=== PATIENT | male | born 1945 | race Caucasian/White ===

== ENCOUNTER 2019-02-21 08:37 | Observation (INO) | payer MEDICARE, OTHER ==
[2019-02-21] MEDS ORDERED: Ondansetron 4 MG/2 ML SDV ONE (08:49)
[2019-02-21] MEDS ORDERED: Sodium Chloride 0.9% 2.5 ML Syringe FLUSH PRN (08:50)
[2019-02-21] MEDS ORDERED: Sodium Chloride 0.9% 10 ML Syringe FLUSH PRN (08:50)
[2019-02-21] MEDS ORDERED: Aspirin 81 MG Tab.Chew PO ONE (08:50)
--- NOTE | 2019-02-21 08:50 | EDM.PDOC ---
ED HPI GENERAL MEDICAL PROBLEM - General Chief Complaint: General Stated Complaint: DIZZY, NOT FEELING WELL Time Seen by Provider: 02/21/19 08:45 - History of Present Illness INITIAL COMMENTS - FREE TEXT/NARRATIVE: HISTORY AND PHYSICAL: History of present illness: Patient is a 73-year-old white male presents with concern of dizziness with associated nausea and vomiting he noticed this upon awakening this morning he does have history of coronary artery disease including bypass surgery 10 years prior and was evaluated as recently 1 year ago without significant findings. Patient states this is worse when he lays flat better when he sitting up he denies any numbness weakness visual disturbance chest pain palpitations diaphoresis or other concern. He denies prior episodes in the past as profound as this and denies any history of vertigo there is no reported CVA Review of systems: As per history of present illness and below otherwise all systems reviewed and negative. Past medical history: As per history of present illness and as reviewed below otherwise noncontributory. Surgical history: As per history of present illness and as reviewed below otherwise noncontributory. Social history: No reported history of drug or alcohol abuse. Family history: As per history of present illness and as reviewed below otherwise noncontributory. Physical exam: HEENT: Atraumatic, normocephalic, pupils reactive, negative for conjunctival pallor or scleral icterus, mucous membranes moist, throat clear, neck supple, nontender, trachea midline. Lungs: Clear to auscultation, breath sounds equal bilaterally, chest nontender. Heart: S1S2, regular, negative for clicks, rubs, or JVD. Abdomen: Soft, nondistended, nontender. Negative for masses or hepatosplenomegaly. Negative for costovertebral tenderness. Pelvis: Stable nontender. Genitourinary: Deferred. Rectal: Deferred. Extremities: Atraumatic, negative for cords or calf pain. Neurovascular unremarkable. Neuro: Awake, alert, oriented. Cranial nerves II through XII unremarkable. Cerebellum unremarkable. Motor and sensory unremarkable throughout. Exam nonfocal. Diagnostics: CBC CMP PT/INR troponin chest x-ray EKG CT brain Therapeutics: IV O2 monitor meclizine 25 mg by mouth Zofran 4 mg IV Impression: #1 dizziness with nausea and vomiting #2 history coronary artery disease with 10 year status post coronary artery bypass graft Definitive disposition and diagnosis as appropriate pending reevaluation and review of above. - Related Data Allergies Allergy/AdvReac Type Severity Reaction Status Date / Time No Known Allergies Allergy Verified 02/21/19 08:54 Home Meds: Home Meds Aspirin 81 mg PO DAILY 02/21/19 [History] Metoprolol Tartrate [Lopressor] 50 mg PO BID 02/21/19 [History] Ramipril [Altace] 10 mg PO DAILY 02/21/19 [History] amLODIPine [Norvasc] 5 mg PO DAILY 02/21/19 [History] atorvaSTATin Calcium [Atorvastatin Calcium] 80 mg PO BEDTIME 02/21/19 [History] Past Medical History HEENT History: Reports: Impaired Vision Other HEENT History: wears glasses Cardiovascular History: Reports: Bypass, High Cholesterol, Hypertension Other Cardiovascular History: CAB x 4 vessels Respiratory History: Reports: None Gastrointestinal History: Reports: None Genitourinary History: Reports: Prostate Disorder Other Genitourinary History: hx of cancer of the prostate Musculoskeletal History: Reports: None Neurological History: Reports: None Psychiatric History: Reports: None Endocrine/Metabolic History: Reports: None Hematologic History: Reports: Blood Transfusion(s) Immunologic History: Reports: None Oncologic (Cancer) History: Reports: Prostate Dermatologic History: Reports: None - Past Surgical History Cardiovascular Surgical History: Reports: Coronary Artery Bypass, Pacer GI Surgical History: Reports: Hernia, Inguinal Oncologic Surgical History: Reports: Other (See Below) ED ROS GENERAL - Review of Systems Review Of Systems: Comprehensive ROS is negative, except as noted in HPI. ED EXAM, GENERAL - Physical Exam Exam: See Below (See dictation) Course - Vital Signs Last Recorded V/S: Last Vital Signs Temp 36.3 C 02/21/19 08:46 Pulse 91 02/21/19 08:46 Resp 18 02/21/19 08:46 BP 164/105 H 02/21/19 08:46 Pulse Ox 91 L 02/21/19 08:46 - Orders/Labs/Meds Orders: Active Orders 24 hr Category Date Time Status Cardiac Monitoring [RC] . DIRECTED Care 02/21/19 08:50 Active Cardiac Monitoring [RC] . DIRECTED Care 02/21/19 08:52 Active EKG Documentation Completion [RC] STAT Care 02/21/19 08:50 Active Abdomen Pelvis w Cont [CT] Stat Exams 02/21/19 10:20 Ordered UA RFX ANGELINA AND CULT IF INDIC [URIN] Stat Lab 02/21/19 08:52 Ordered Sodium Chloride 0.9% [Saline Flush] Med 02/21/19 08:50 Active 10 ml FLUSH ASDIRECTED PRN Sodium Chloride 0.9% [Saline Flush] Med 02/21/19 08:50 Active 2.5 ml FLUSH ASDIRECTED PRN Saline Lock Insert [OM.PC] Stat Oth 02/21/19 08:50 Ordered Medication Orders Sodium Chloride (Saline Flush) 10 ml FLUSH ASDIRECTED PRN PRN Reason: Keep Vein Open Last Admin: 02/21/19 08:59 Dose: 10 ml Sodium Chloride (Saline Flush) 2.5 ml FLUSH ASDIRECTED PRN PRN Reason: Keep Vein Open Last Admin: 02/21/19 08:59 Dose: 2.5 ml Labs: Laboratory Tests 02/21/19 02/21/19 02/21/19 Range/Units 09:02 09:02 09:02 WBC 6.39 (4.0-11.0) K/uL RBC 5.21 (4.50-5.90) M/uL Hgb 15.9 (13.0-17.0) g/dL Hct 47.1 (38.0-50.0) % MCV 90.4 (80.0-98.0) fL MCH 30.5 (27.0-32.0) pg MCHC 33.8 (31.0-37.0) g/dL RDW Std Deviation 43.9 (28.0-62.0) fl RDW Coeff of Alejandro 13 (11.0-15.0) % Plt Count 182 (150-400) K/uL MPV 9.70 (7.40-12.00) fL Neut % (Auto) 49.0 (48.0-80.0) % Lymph % (Auto) 38.3 (16.0-40.0) % [place] % (Auto) 6.9 (0.0-15.0) % Eos % (Auto) 5.3 (0.0-7.0) % Baso % (Auto) 0.5 (0.0-1.5) % Neut # (Auto) 3.1 (1.4-5.7) K/uL Lymph # (Auto) 2.5 H (0.6-2.4) K/uL Oxford # (Auto) 0.4 (0.0-0.8) K/uL Eos # (Auto) 0.3 (0.0-0.7) K/uL Baso # (Auto) 0.0 (0.0-0.1) K/uL Nucleated RBC % 0.0 /100WBC Nucleated RBCs # 0 K/uL INR 1.04 Sodium 141 (136-148) mmol/L Potassium 3.4 L (3.5-5.1) mmol/L Chloride 106 (98-107) mmol/L Carbon Dioxide 27.6 (21.0-32.0) mmol/L BUN 18 (7.0-18.0) mg/dL Creatinine 1.1 (0.8-1.3) mg/dL Est Cr Clr Drug Dosing 43.56 mL/min Estimated GFR (MDRD) > 60.0 ml/min Glucose 129 H (74-106) mg/dL Calcium 8.8 (8.5-10.1) mg/dL Total Bilirubin 0.5 (0.2-1.0) mg/dL AST 25 (15-37) IU/L ALT 52 (14-63) IU/L Alkaline Phosphatase 73 (46-116) U/L Troponin I < 0.050 (0.000-0.056) ng/mL B-Natriuretic Peptide (<100) PG/ML Total Protein 7.3 (6.4-8.2) g/dL Albumin 4.0 (3.4-5.0) g/dL Globulin 3.3 (2.6-4.0) g/dL Albumin/Globulin Ratio 1.2 (0.9-1.6) Amylase 138 H (25-115) U/L Lipase 453 H (73-393) U/L 02/21/19 Range/Units 09:02 WBC (4.0-11.0) K/uL RBC (4.50-5.90) M/uL Hgb (13.0-17.0) g/dL Hct (38.0-50.0) % MCV (80.0-98.0) fL MCH (27.0-32.0) pg MCHC (31.0-37.0) g/dL RDW Std Deviation (28.0-62.0) fl RDW Coeff of Alejandro (11.0-15.0) % Plt Count (150-400) K/uL MPV (7.40-12.00) fL Neut % (Auto) (48.0-80.0) % Lymph % (Auto) (16.0-40.0) % Oxford % (Auto) (0.0-15.0) % Eos % (Auto) (0.0-7.0) % Baso % (Auto) (0.0-1.5) % Neut # (Auto) (1.4-5.7) K/uL Lymph # (Auto) (0.6-2.4) K/uL [place] # (Auto) (0.0-0.8) K/uL Eos # (Auto) (0.0-0.7) K/uL Baso # (Auto) (0.0-0.1) K/uL Nucleated RBC % /100WBC Nucleated RBCs # K/uL INR Sodium (136-148) mmol/L Potassium (3.5-5.1) mmol/L Chloride (98-107) mmol/L Carbon Dioxide (21.0-32.0) mmol/L BUN (7.0-18.0) mg/dL Creatinine (0.8-1.3) mg/dL Est Cr Clr Drug Dosing mL/min Estimated GFR (MDRD) ml/min Glucose (74-106) mg/dL Calcium (8.5-10.1) mg/dL Total Bilirubin (0.2-1.0) mg/dL AST (15-37) IU/L ALT (14-63) IU/L Alkaline Phosphatase (46-116) U/L Troponin I (0.000-0.056) ng/mL B-Natriuretic Peptide 31 (<100) PG/ML Total Protein (6.4-8.2) g/dL Albumin (3.4-5.0) g/dL Globulin (2.6-4.0) g/dL Albumin/Globulin Ratio (0.9-1.6) Amylase (25-115) U/L Lipase (73-393) U/L Meds: Medications Generic Name Dose Route Start Last Admin Trade Name Freq PRN Reason Stop Dose Admin Sodium Chloride 10 ml 02/21/19 08:50 02/21/19 08:59 Saline Flush FLUSH 10 ml ASDIRECTED PRN Administration Keep Vein Open Sodium Chloride 2.5 ml 02/21/19 08:50 02/21/19 08:59 Saline Flush FLUSH 2.5 ml ASDIRECTED PRN Administration Keep Vein Open Discontinued Medications Generic Name Dose Route Start Last Admin Trade Name Freq PRN Reason Stop Dose Admin Aspirin 324 mg 02/21/19 08:50 02/21/19 08:59 Aspirin PO 02/21/19 08:51 324 mg ONETIME ONE Administration Meclizine HCl 25 mg 02/21/19 08:51 02/21/19 08:59 Antivert PO 02/21/19 08:52 25 mg ONETIME ONE Administration Ondansetron HCl 4 mg 02/21/19 08:51 02/21/19 08:59 Zofran IVPUSH 02/21/19 08:52 4 mg ONETIME ONE Administration Ondansetron HCl Confirm 02/21/19 08:49 02/21/19 08:59 Zofran Administered 02/21/19 08:50 Not Given Dose 4 mg .ROUTE .STK-MED ONE Departure - Departure Time of Disposition: 10:21 Disposition: Refer to Observation Condition: Good Clinical Impression: Dizziness, History of coronary artery disease, Elevated amylase and lipase, Vomiting - Discharge Information Referrals: Noam Shelby MD [Primary Care Provider] - Forms: ED Department Discharge - My Orders Last 24 Hours: My Active Orders 02/21/19 08:50 Cardiac Monitoring [RC] . DIRECTED EKG Documentation Completion [RC] STAT Sodium Chloride 0.9% [Saline Flush] 10 ml FLUSH ASDIRECTED PRN Sodium Chloride 0.9% [Saline Flush] 2.5 ml FLUSH ASDIRECTED PRN Saline Lock Insert [OM.PC] Stat 02/21/19 08:52 Cardiac Monitoring [RC] . DIRECTED UA RFX ANGELINA AND CULT IF INDIC [URIN] Stat 02/21/19 10:20 Abdomen Pelvis w Cont [CT] Stat - Assessment/Plan Last 24 Hours: My Active Orders 02/21/19 08:50 Cardiac Monitoring [RC] . DIRECTED EKG Documentation Completion [RC] STAT Sodium Chloride 0.9% [Saline Flush] 10 ml FLUSH ASDIRECTED PRN Sodium Chloride 0.9% [Saline Flush] 2.5 ml FLUSH ASDIRECTED PRN Saline Lock Insert [OM.PC] Stat 02/21/19 08:52 Cardiac Monitoring [RC] . DIRECTED UA RFX ANGELINA AND CULT IF INDIC [URIN] Stat 02/21/19 10:20 Abdomen Pelvis w Cont [CT] Stat
[2019-02-21] MEDS ORDERED: Ondansetron 4 MG/2 ML SDV IVPUSH ONE (08:51)
[2019-02-21] MEDS ORDERED: Meclizine 25 MG Tab PO ONE (08:51)
--- NOTE | 2019-02-21 09:30 | CR ---
Indication: Dizziness. Nausea. Vomiting. Technique: Single AP portable view of the chest was obtained. Comparison: December 29, 2015. Findings: Heart is normal in size. Median sternotomy wires are identified. Left-sided pacemaker is identified. No infiltrate, pleural effusion, or pneumothorax is identified. Impression: Stable chest x-ray Dictated by Lisset Quinones MD @ Feb 21 2019 9:28AM Signed by Dr. Lisset Quinones @ Feb 21 2019 9:29AM
[2019-02-21 09:36] LABS: BLOOD UREA NITROGEN,BUN 18 mg/dL (7.0-18.0); CARBON DIOXIDE,CO2 27.6 mmol/L (21.0-32.0); CHLORIDE,CL 106 mmol/L (98-107); GLUCOSE RANDOM 129 mg/dL (74-106); LIPASE 453 U/L (73-393); POTASSIUM,K 3.4 mmol/L (3.5-5.1); SODIUM,NA 141 mmol/L (136-148)
--- NOTE | 2019-02-21 09:43 | CT ---
INDICATION: Dizziness. Nausea. Vomiting. TECHNIQUE: Noncontrast CT images were obtained through the brain. COMPARISON: None. FINDINGS: The ventricles and sulci are within normal limits for patient age. No mass effect or midline shift. The padilla-white differentiation is maintained. No acute intracranial hemorrhage or pathologic extra-axial fluid collection. Patchy hypoattenuation in the supratentorial white matter, nonspecific though suggestive of aeal-xj-jwkyfqhy chronic microvascular ischemic changes. Intracranial atherosclerotic calcifications in the internal carotid and vertebral arteries. The globes are symmetric in size. Subcutaneous stranding in the posterior parietal scalp near midline. The calvarium is intact. Mild mucosal thickening in the maxillary and ethmoid sinuses. The mastoid air cells are clear. IMPRESSION: 1. No acute intracranial hemorrhage or mass effect. 2. Findings typical for icdl-rb-[id number] chronic microvascular ischemic changes. 3. Nonspecific stranding in the posterior parietal scalp near midline. Findings may relate to posttraumatic sequelae. Please note that all CT scans at this facility use dose modulation, iterative reconstruction, and/or weight-based dosing when appropriate to reduce radiation dose to as low as reasonably achievable. Dictated by Silverio Ardon MD @ Feb 21 2019 9:36AM Signed by Dr. Silverio Ardon @ Feb 21 2019 9:42AM
[2019-02-21] MEDS ORDERED: Iopamidol 755 MG/ML 500 ML Multipack Bottle IVPUSH STA (10:55)
--- NOTE | 2019-02-21 11:30 | CT ---
INDICATION: Vomiting nausea noncontrast CT contrast-enhanced CT and pelvis. COMPARISON: No comparison studies are available. Findings : Heart size is normal. Basilar atelectasis. 4 mm left lower lobe pulmonary nodule on series 201 image 11. Subpleural 4 mm right middle lobe pulmonary nodule on image 18. Small moderate hiatal hernia. Spleen, adrenal glands are unremarkable. Gallbladder is unremarkable. Multiple low-density lesions in liver likely reflecting cysts. No abdominal aortic aneurysm.There is a 1 cm low-density lesion off the pancreatic tail this is on image 48 there is no ductal dilatation. Symmetric enhancement of both kidneys. Right renal cysts measuring up to 5 cm. Additional bilateral too small to characterize low-density lesions in both kidneys. There is a 1 cm lesion in the anterior lateral right upper kidney this is on image 59. There is additional 7 mm lesion posterior right midkidney on image 63 which are incompletely assessed and could represent small masses or hyperdense cysts. Normal appendix. Urinary bladder is unremarkable. Prostatectomy. No pelvic sidewall or retroperitoneal adenopathy visualized. No suspicious bony lesions. Impression: 1. No acute findings in the abdomen or pelvis. Diverticulosis. 2. Few pulmonary nodules follow-up per Fleischner society guidelines . 3. Right renal cysts. A 1 centimeter and 7 millimeter lesion in the right kidney which could represent mass or hyperdense cysts. Renal CT with and without contrast on a routine basis would be recommended. 4. 1 centimeter pancreatic tail low-density lesion. Reimaging in 2 years with MRI would be recommended. Please note that all CT scans at this facility use dose modulation, iterative reconstruction, and/or weight-based dosing when appropriate to reduce radiation dose to as low as reasonably achievable. Dictated by Daina Sumner MD @ Feb 21 2019 11:15AM Signed by Dr. Daina Sumner @ Feb 21 2019 11:28AM
[2019-02-21] MEDS ORDERED: Acetaminophen 325 MG Tab PO PRN (11:52)
[2019-02-21] MEDS ORDERED: Albuterol/Ipratropium 3.0-0.5 MG/3 ML Neb Soln NEB PRN (11:52)
[2019-02-21] MEDS ORDERED: Ondansetron 4 MG Tab.DIS PO PRN (11:52)
[2019-02-21] MEDS ORDERED: Ondansetron 4 MG/2 ML SDV IVPUSH PRN (11:52)
--- NOTE | 2019-02-21 11:56 | PCM.HP.2 ---
H&P History of Present Illness - General Date of Service: 02/21/19 Admit Problem/Dx: Admission Diagnosis/Problem Admission Diagnosis/Problem Dizziness Source of Information: Patient History Limitations: Reports: No Limitations - History of Present Illness Initial Comments - Free Text/Narative: Patient is a 73-year-old white male presents with concern of dizziness, nausea and vomiting and diaphoresis that started this AM upon awakening. PMH is significant coronary artery disease including bypass surgery 10 years prior. Patient states his symptoms got really worse when he tried to lay down, and better when he sitting up. Patient denies fever, cough, chest pain. palpations, numbness, tingling, focal neurological deficit. Prior episodes of dizziness noted but not as intense as this one. in ER, EKG was not significant, Troponin negative, CT head showed no acute stroke, CT abdomen and pelvis showed no acute process. Lipase and amylase were mildly elevated,. Patient is being admitted for management of Dizziness and N/V. Onset of Symptoms: Reports: Today, Sudden Duration of Symptoms: Reports: Hour(s): Severity: Moderate - Related Data Allergies/Adverse Reactions: Allergies Allergy/AdvReac Type Severity Reaction Status Date / Time No Known Allergies Allergy Verified 02/21/19 12:07 Home Medications: Home Meds Aspirin 81 mg PO DAILY 02/21/19 [History] Metoprolol Tartrate [Lopressor] 50 mg PO BID 02/21/19 [History] Ramipril [Altace] 10 mg PO DAILY 02/21/19 [History] amLODIPine [Norvasc] 5 mg PO DAILY 02/21/19 [History] atorvaSTATin Calcium [Atorvastatin Calcium] 80 mg PO BEDTIME 02/21/19 [History] Past Medical History HEENT History: Reports: Impaired Vision Other HEENT History: wears glasses Cardiovascular History: Reports: Bypass, High Cholesterol, Hypertension Other Cardiovascular History: CAB x 4 vessels Respiratory History: Reports: None Gastrointestinal History: Reports: None Genitourinary History: Reports: Prostate Disorder Other Genitourinary History: hx of cancer of the prostate Musculoskeletal History: Reports: None Neurological History: Reports: None Psychiatric History: Reports: None Endocrine/Metabolic History: Reports: None Hematologic History: Reports: Blood Transfusion(s) Immunologic History: Reports: None Oncologic (Cancer) History: Reports: Prostate Dermatologic History: Reports: None - Infectious Disease History Infectious Disease History: Reports: None - Past Surgical History Head Surgeries/Procedures: Reports: None Cardiovascular Surgical History: Reports: Coronary Artery Bypass, Pacer GI Surgical History: Reports: Hernia, Inguinal Male Surgical History: Reports: None Oncologic Surgical History: Reports: Other (See Below) Social & Family History - Family History Family Medical History: Noncontributory - Tobacco Use Smoking Status *Q: Never Smoker Second Hand Smoke Exposure: No - Caffeine Use Caffeine Use: Reports: Coffee - Recreational Drug Use Recreational Drug Use: No H&P Review of Systems - Review of Systems: Review Of Systems: See Below General: Denies: Fever, Chills, Malaise HEENT: Denies: Ear Pain, Eye Pain, Rhinitis, Sore Throat Pulmonary: Denies: Shortness of Breath, Wheezing Cardiovascular: Denies: Chest Pain, Palpitations Gastrointestinal: Denies: Abdominal Pain, Anorexia, Black Stool Genitourinary: Denies: Dysuria, Frequency, Burning Neurological: Reports: Dizziness. Denies: Confusion, Headache, Numbness, Pre- Existing Deficit, Tingling, Tremors, Trouble Speaking Exam - Exam Exam: See Below - Vital Signs Vital Signs: Last Vital Signs Temp 35.9 C 02/21/19 11:20 Pulse 69 02/21/19 11:20 Resp 16 02/21/19 11:20 BP 142/75 H 02/21/19 11:20 Pulse Ox 96 02/21/19 11:20 Weight: 74.389 kg - Exam General: Alert, Oriented HEENT: Conjunctiva Clear Neck: Supple, Trachea Midline Lungs: Clear to Auscultation, Normal Respiratory Effort Cardiovascular: Regular Rate, Regular Rhythm GI/Abdominal Exam: Normal Bowel Sounds, Soft, Non-Tender Extremities: Normal Inspection Peripheral Pulses: 3+: Dorsalis Pedis (L), Dorsalis Pedis (R) Neuro Extensive - Mental Status: Alert, Oriented x3, Normal Mood/Affect Neuro Extensive - Motor, Sensory, Reflexes: Other (horizontal nystagmus upon adduction and abduction ) - Patient Data Lab Results Last 24 hrs: Laboratory Results - last 24 hr 02/21/19 02/21/19 02/21/19 Range/Units 09:02 09:02 09:02 WBC 6.39 (4.0-11.0) K/uL RBC 5.21 (4.50-5.90) M/uL Hgb 15.9 (13.0-17.0) g/dL Hct 47.1 (38.0-50.0) % MCV 90.4 (80.0-98.0) fL MCH 30.5 (27.0-32.0) pg MCHC 33.8 (31.0-37.0) g/dL RDW Std Deviation 43.9 (28.0-62.0) fl RDW Coeff of Alejandro 13 (11.0-15.0) % Plt Count 182 (150-400) K/uL MPV 9.70 (7.40-12.00) fL Neut % (Auto) 49.0 (48.0-80.0) % Lymph % (Auto) 38.3 (16.0-40.0) % Kaufman % (Auto) 6.9 (0.0-15.0) % Eos % (Auto) 5.3 (0.0-7.0) % Baso % (Auto) 0.5 (0.0-1.5) % Neut # (Auto) 3.1 (1.4-5.7) K/uL Lymph # (Auto) 2.5 H (0.6-2.4) K/uL Kaufman # (Auto) 0.4 (0.0-0.8) K/uL Eos # (Auto) 0.3 (0.0-0.7) K/uL Baso # (Auto) 0.0 (0.0-0.1) K/uL Nucleated RBC % 0.0 /100WBC Nucleated RBCs # 0 K/uL INR 1.04 Sodium 141 (136-148) mmol/L Potassium 3.4 L (3.5-5.1) mmol/L Chloride 106 (98-107) mmol/L Carbon Dioxide 27.6 (21.0-32.0) mmol/L BUN 18 (7.0-18.0) mg/dL Creatinine 1.1 (0.8-1.3) mg/dL Est Cr Clr Drug Dosing 43.56 mL/min Estimated GFR (MDRD) > 60.0 ml/min Glucose 129 H (74-106) mg/dL Calcium 8.8 (8.5-10.1) mg/dL Total Bilirubin 0.5 (0.2-1.0) mg/dL AST 25 (15-37) IU/L ALT 52 (14-63) IU/L Alkaline Phosphatase 73 (46-116) U/L Troponin I < 0.050 (0.000-0.056) ng/mL B-Natriuretic Peptide (<100) PG/ML Total Protein 7.3 (6.4-8.2) g/dL Albumin 4.0 (3.4-5.0) g/dL Globulin 3.3 (2.6-4.0) g/dL Albumin/Globulin Ratio 1.2 (0.9-1.6) Amylase 138 H (25-115) U/L Lipase 453 H (73-393) U/L 02/21/19 Range/Units 09:02 WBC (4.0-11.0) K/uL RBC (4.50-5.90) M/uL Hgb (13.0-17.0) g/dL Hct (38.0-50.0) % MCV (80.0-98.0) fL MCH (27.0-32.0) pg MCHC (31.0-37.0) g/dL RDW Std Deviation (28.0-62.0) fl RDW Coeff of Alejandro (11.0-15.0) % Plt Count (150-400) K/uL MPV (7.40-12.00) fL Neut % (Auto) (48.0-80.0) % Lymph % (Auto) (16.0-40.0) % Kaufman % (Auto) (0.0-15.0) % Eos % (Auto) (0.0-7.0) % Baso % (Auto) (0.0-1.5) % Neut # (Auto) (1.4-5.7) K/uL Lymph # (Auto) (0.6-2.4) K/uL Kaufman # (Auto) (0.0-0.8) K/uL Eos # (Auto) (0.0-0.7) K/uL Baso # (Auto) (0.0-0.1) K/uL Nucleated RBC % /100WBC Nucleated RBCs # K/uL INR Sodium (136-148) mmol/L Potassium (3.5-5.1) mmol/L Chloride (98-107) mmol/L Carbon Dioxide (21.0-32.0) mmol/L BUN (7.0-18.0) mg/dL Creatinine (0.8-1.3) mg/dL Est Cr Clr Drug Dosing mL/min Estimated GFR (MDRD) ml/min Glucose (74-106) mg/dL Calcium (8.5-10.1) mg/dL Total Bilirubin (0.2-1.0) mg/dL AST (15-37) IU/L ALT (14-63) IU/L Alkaline Phosphatase (46-116) U/L Troponin I (0.000-0.056) ng/mL B-Natriuretic Peptide 31 (<100) PG/ML Total Protein (6.4-8.2) g/dL Albumin (3.4-5.0) g/dL Globulin (2.6-4.0) g/dL Albumin/Globulin Ratio (0.9-1.6) Amylase (25-115) U/L Lipase (73-393) U/L Result Diagrams: 02/21/19 09:02 02/21/19 09:02 - Problem List (1) Dizziness SNOMED Code(s): 366211988, 135792886 ICD Code: R42 - DIZZINESS AND GIDDINESS Status: Acute Current Visit: Yes (2) Elevated amylase and lipase SNOMED Code(s): 771265361, 712721873 ICD Code: R74.8 - ABNORMAL LEVELS OF OTHER SERUM ENZYMES Status: Acute Current Visit: Yes (3) History of coronary artery disease SNOMED Code(s): 671308872 ICD Code: Z86.79 - PERSONAL HISTORY OF OTHER DISEASES OF THE CIRCULATORY SYSTEM Status: Acute Current Visit: Yes (4) Vomiting SNOMED Code(s): 870194187 ICD Code: R11.10 - VOMITING, UNSPECIFIED Status: Acute Current Visit: Yes Problem List Initiated/Reviewed/Updated: Yes Orders Last 24hrs: Active Orders 24 hr Category Date Time Status Patient Status [ADT] Stat ADT 02/21/19 10:26 Active Ambulate [RC] ASDIRECTED Care 02/21/19 11:52 Ordered Antiembolic Devices [RC] PER UNIT ROUTINE Care 02/21/19 11:53 Ordered Blood Glucose Check, Bedside [RC] WITHMEALSANDBED Care 02/21/19 11:52 Ordered Cardiac Monitoring [RC] . DIRECTED Care 02/21/19 08:50 Active Cardiac Monitoring [RC] . DIRECTED Care 02/21/19 08:52 Active Influenza Vaccine Charge [RC] .DISCHARGE Care 02/21/19 11:28 Active Oxygen Therapy [RC] PRN Care 02/21/19 11:52 Ordered RT Aerosol Therapy [RC] ASDIRECTED Care 02/21/19 11:54 Ordered VTE/DVT Education [RC] PER UNIT ROUTINE Care 02/21/19 11:52 Ordered Vital Signs [RC] Q4H Care 02/21/19 11:52 Ordered Heart Healthy Diet [DIET] Diet 02/21/19 Lunch Ordered UA RFX ANGELINA AND CULT IF INDIC [URIN] Stat Lab 02/21/19 08:52 Ordered Acetaminophen [Tylenol] Med 02/21/19 11:52 Ordered 650 mg PO Q4H PRN Albuterol/Ipratropium [DuoNeb 3.0-0.5 MG/3 ML] Med 02/21/19 11:52 Ordered 3 ml NEB Q4HRRT PRN Ondansetron [Zofran ODT] Med 02/21/19 11:52 Ordered 4 mg PO Q4H PRN Ondansetron [Zofran] Med 02/21/19 11:52 Ordered 4 mg IVPUSH Q4H PRN Sodium Chloride 0.9% [Saline Flush] Med 02/21/19 08:50 Active 10 ml FLUSH ASDIRECTED PRN Sodium Chloride 0.9% [Saline Flush] Med 02/21/19 08:50 Active 2.5 ml FLUSH ASDIRECTED PRN Saline Lock Insert [OM.PC] Stat Oth 02/21/19 08:50 Ordered Sequential Compression Device [OM.PC] Per Unit Routine Oth 02/21/19 11:52 Ordered Resuscitation Status Routine Resus Stat 02/21/19 11:52 Ordered Medication Orders Acetaminophen (Tylenol) 650 mg PO Q4H PRN PRN Reason: Pain (Mild 1-3)/fever Albuterol/Ipratropium (Duoneb 3.0-0.5 Mg/3 Ml) 3 ml NEB Q4HRRT PRN PRN Reason: Shortness Of Breath/wheezing Ondansetron HCl (Zofran Odt) 4 mg PO Q4H PRN PRN Reason: nausea, able to take PO Ondansetron HCl (Zofran) 4 mg IVPUSH Q4H PRN PRN Reason: Nausea/Vomiting Sodium Chloride (Saline Flush) 10 ml FLUSH ASDIRECTED PRN PRN Reason: Keep Vein Open Last Admin: 02/21/19 08:59 Dose: 10 ml Sodium Chloride (Saline Flush) 2.5 ml FLUSH ASDIRECTED PRN PRN Reason: Keep Vein Open Last Admin: 02/21/19 08:59 Dose: 2.5 ml Assessment/Plan Comment:: A/P: 1.Dizziness: started today, CT scan head negative, Troponin 1st negative as well , Will check orthostatics Will obtain MRI/MRA to r/o posterior circulation stroke Hold off on antihypertensive for now till acute stroke ruled out Will get PT on board 2. Nausea, elevated amylase, lipase: cont IVF, no acute pathology on CT scan abdomen, LFTs normal cont to trend Zofran as needed IV PPI daily 3. CAD: cont ASA, statin no chest pain
[2019-02-21] MEDS ORDERED: Sodium Chloride 0.9% 1,000 ML IV SCH (12:15)
[2019-02-21] MEDS: Pantoprazole 40 MG in Sodium Chloride 0.9% 10 ML IV SCH (12:45)
[2019-02-21] MEDS ORDERED: Dextrose 5%-0.9% NaCl 1,000 ML IV SCH (16:15)
[2019-02-21] MEDS: Sodium Chloride 0.9% 1,000 ML IV SCH (19:32)
[2019-02-21] MEDS ORDERED: atorvaSTATin 40 MG Tab PO SCH (21:00)
[2019-02-22 06:29] LABS: BLOOD UREA NITROGEN,BUN 11 mg/dL (7.0-18.0); CARBON DIOXIDE,CO2 26.5 mmol/L (21.0-32.0); CHLORIDE,CL 107 mmol/L (98-107); GLUCOSE RANDOM 87 mg/dL (74-106); LIPASE 104 U/L (73-393); POTASSIUM,K 3.8 mmol/L (3.5-5.1); SODIUM,NA 143 mmol/L (136-148)
[2019-02-22] MEDS ORDERED: Aspirin 81 MG Tab.Chew PO SCH (09:00)
[2019-02-22] MEDS: Pantoprazole 40 MG in Sodium Chloride 0.9% 10 ML IV SCH (09:25)
[2019-02-22] MEDS: Sodium Chloride 0.9% 1,000 ML IV SCH ×2 (09:30)
[2019-02-22 12:32] VITALS: BP 155/86; PULSE 76
--- NOTE | 2019-02-22 18:29 | PCM.DCSUM1 ---
<Miguel A Rudd - Last Filed: 02/22/19 18:23> Discharge Summary - Hospital Course Free Text/Narrative:: 73 yoM admitted for dizziness, nausea and vomiting. He has a PMH of CAD s/p CABG and pacemaker. CT head showed non-specific stranding of posterior scalp. MRI could not be obtained because of patient's pacemaker. Ct abdomen and pelvis showed 4 mm left pulmonary nodule, multiple low density lesions in liver likely reflecting cysts. Also noted to be a 1 cm lesion on pancreatic tail. These findings will need to be monitored and evaluated further by patient's PCP. Patient was treated with IV fluids, zofran and PPI for nausea and noted complete resolution of symptoms on day of discharge from hospital. Orthostatics were negative. Patient discharged in stable condition with referral made to neurologist Dr. Sheldon for further evaluation and CT head findings. Patient advised to follow-up with PCP as well. - Discharge Data Discharge Date: 02/22/19 Discharge Disposition: Home, Self-Care 01 Condition: Stable - Referral to Home Health Primary Care Physician: Noam Shelby MD - Patient Instructions Diet: Heart Healthy Diet Activity: As Tolerated Notify Provider of: Fever, Increased Pain, Swelling and Redness, Nausea and/or Vomiting - Discharge Plan *PRESCRIPTION DRUG MONITORING PROGRAM REVIEWED*: Not Applicable *COPY OF PRESCRIPTION DRUG MONITORING REPORT IN PATIENT STELLA: Not Applicable Home Medications: Home Meds Aspirin 81 mg PO DAILY 02/21/19 [History] Metoprolol Tartrate [Lopressor] 50 mg PO BID 02/21/19 [History] Ramipril [Altace] 10 mg PO DAILY 02/21/19 [History] amLODIPine [Norvasc] 5 mg PO DAILY 02/21/19 [History] atorvaSTATin Calcium [Atorvastatin Calcium] 80 mg PO BEDTIME 02/21/19 [History] Oxygen Therapy Mode: Room Air Patient Handouts: Dizziness, [id number], Fat and Cholesterol Restricted Eating Plan, [id number] Referrals: Fabiola Sheldon MD [Physician] - 04/01/19 1:30 pm Noam Shelby MD [Primary Care Provider] - 03/11/19 10:00 am - Discharge Summary/Plan Comment DC Time >30 min.: No - Patient Data Vitals - Most Recent: Last Vital Signs Temp 97.7 F 02/22/19 12:00 Pulse 76 02/22/19 12:00 Resp 18 02/22/19 12:00 BP 155/86 H 02/22/19 12:00 Pulse Ox 95 02/22/19 12:00 Orthostatic Blood Pressure [ 167/97 Standing] Orthostatic Blood Pressure [ 165/89 Sitting] Orthostatic Blood Pressure [ 143/85 Supine] Weight - Most Recent: 74.389 kg I&O - Last 24 hours: Intake & Output 02/22/19 02/22/19 02/22/19 06:59 14:59 22:59 Intake Total 994 350 Output Total 850 480 Balance 144 -130 Lab Results - Last 24 hrs: Laboratory Results - last 24 hr 02/22/19 02/22/19 02/22/19 Range/Units 05:50 05:50 06:09 WBC 9.74 (4.0-11.0) K/uL RBC 5.02 (4.50-5.90) M/uL Hgb 15.4 (13.0-17.0) g/dL Hct 46.2 (38.0-50.0) % MCV 92.0 (80.0-98.0) fL MCH 30.7 (27.0-32.0) pg MCHC 33.3 (31.0-37.0) g/dL RDW Std Deviation 45.8 (28.0-62.0) fl RDW Coeff of Alejandro 14 (11.0-15.0) % Plt Count 181 (150-400) K/uL MPV 9.80 (7.40-12.00) fL Neut % (Auto) 67.2 (48.0-80.0) % Lymph % (Auto) 20.6 (16.0-40.0) % Morrill % (Auto) 8.8 (0.0-15.0) % Eos % (Auto) 3.0 (0.0-7.0) % Baso % (Auto) 0.4 (0.0-1.5) % Neut # (Auto) 6.5 H (1.4-5.7) K/uL Lymph # (Auto) 2.0 (0.6-2.4) K/uL Morrill # (Auto) 0.9 H (0.0-0.8) K/uL Eos # (Auto) 0.3 (0.0-0.7) K/uL Baso # (Auto) 0.0 (0.0-0.1) K/uL Nucleated RBC % 0.0 /100WBC Nucleated RBCs # 0 K/uL Sodium 143 (136-148) mmol/L Potassium 3.8 (3.5-5.1) mmol/L Chloride 107 (98-107) mmol/L Carbon Dioxide 26.5 (21.0-32.0) mmol/L BUN 11 (7.0-18.0) mg/dL Creatinine 1.0 (0.8-1.3) mg/dL Est Cr Clr Drug Dosing 50.12 mL/min Estimated GFR (MDRD) > 60.0 ml/min Glucose 87 (74-106) mg/dL POC Glucose 81 (60-110) mg/dL Calcium 8.3 L (8.5-10.1) mg/dL Phosphorus 2.7 (2.6-4.7) mg/dL Magnesium 2.0 (1.8-2.4) mg/dL Lipase 104 (73-393) U/L Med Orders - Current: Current Medications Discontinued Medications Acetaminophen (Tylenol) 650 mg PO Q4H PRN PRN Reason: Pain (Mild 1-3)/fever Albuterol/Ipratropium (Duoneb 3.0-0.5 Mg/3 Ml) 3 ml NEB Q4HRRT PRN PRN Reason: Shortness Of Breath/wheezing Aspirin (Aspirin) 324 mg PO ONETIME ONE Stop: 02/21/19 08:51 Last Admin: 02/21/19 08:59 Dose: 324 mg Aspirin (Aspirin) 81 mg PO DAILY [facility] Last Admin: 02/22/19 09:22 Dose: 81 mg Atorvastatin Calcium (Lipitor) 80 mg PO BEDTIME [facility] Last Admin: 02/21/19 21:04 Dose: 80 mg Sodium Chloride (Normal Saline) 1,000 mls @ 125 mls/hr IV ASDIRECTED [facility] Last Admin: 02/21/19 12:59 Dose: 125 mls/hr Pantoprazole Sodium 40 mg/ (Sodium Chloride) 10 mls @ 300 mls/hr IV DAILY [facility] Last Admin: 02/22/19 09:25 Dose: 300 mls/hr Dextrose/Sodium Chloride (Dextrose 5%-Normal Saline) 1,000 mls @ 100 mls/hr IV ASDIRECTED [facility] Last Admin: 02/21/19 16:27 Dose: 100 mls/hr Sodium Chloride (Normal Saline) 1,000 mls @ 100 mls/hr IV ASDIRECTED [facility] Last Admin: 02/22/19 09:30 Dose: 100 mls/hr Influenza Virus Vaccine (Fluzone High-Dose 2019-20 Syringe) 180 mcg IM .ONCE ONE Stop: 02/22/19 09:01 Iopamidol (Isovue Multipack-370 (76%)) 90 ml IVPUSH ONETIME STA Stop: 02/21/19 10:56 Last Admin: 02/21/19 10:55 Dose: 90 ml Meclizine HCl (Antivert) 25 mg PO ONETIME ONE Stop: 02/21/19 08:52 Last Admin: 02/21/19 08:59 Dose: 25 mg Ondansetron HCl (Zofran) 4 mg IVPUSH ONETIME ONE Stop: 02/21/19 08:52 Last Admin: 02/21/19 08:59 Dose: 4 mg Ondansetron HCl (Zofran) Confirm Administered Dose 4 mg .ROUTE .STK-MED ONE Stop: 02/21/19 08:50 Last Admin: 02/21/19 08:59 Dose: Not Given Ondansetron HCl (Zofran Odt) 4 mg PO Q4H PRN PRN Reason: nausea, able to take PO Ondansetron HCl (Zofran) 4 mg IVPUSH Q4H PRN PRN Reason: Nausea/Vomiting Sodium Chloride (Saline Flush) 10 ml FLUSH ASDIRECTED PRN PRN Reason: Keep Vein Open Last Admin: 02/21/19 08:59 Dose: 10 ml Sodium Chloride (Saline Flush) 2.5 ml FLUSH ASDIRECTED PRN PRN Reason: Keep Vein Open Last Admin: 02/21/19 08:59 Dose: 2.5 ml - Exam General: Reports: Alert, Oriented, Cooperative, No Acute Distress HEENT: Reports: Pupils Equal, Pupils Reactive, EOMI Lungs: Reports: Clear to Auscultation Cardiovascular: Reports: Regular Rate, Regular Rhythm GI/Abdominal Exam: Normal Bowel Sounds, Soft, Non-Tender, No Distention Extremities: Normal Inspection, No Pedal Edema Neurological: Reports: Normal Speech, Normal Tone, Strength Equal Bilateral, Cranial Nerves Intact Psy/Mental Status: Reports: Alert, Normal Affect, Normal Mood <Eugenio,Hooria - Last Filed: 02/28/19 09:11> Discharge Summary - Hospital Course HPI Initial Comments: I have seen and examined the patient, i have discussed the management plan with the resident and agree with the documentation unless specified otherwise in my note. - Referral to Home Health Primary Care Physician: Noam Shelby MD - Discharge Diagnosis/Problem(s) (1) Dizziness SNOMED Code(s): 215278121, 384724130 ICD Code: R42 - DIZZINESS AND GIDDINESS Status: Acute (2) Elevated amylase and lipase SNOMED Code(s): 545466872, 573717641 ICD Code: R74.8 - ABNORMAL LEVELS OF OTHER SERUM ENZYMES Status: Acute (3) History of coronary artery disease SNOMED Code(s): 489927778 ICD Code: Z86.79 - PERSONAL HISTORY OF OTHER DISEASES OF THE CIRCULATORY SYSTEM Status: Acute (4) Vomiting SNOMED Code(s): 689053380 ICD Code: R11.10 - VOMITING, UNSPECIFIED Status: Acute - Patient Data Vitals - Most Recent: Last Vital Signs Temp 36.5 C 02/22/19 12:00 Pulse 76 02/22/19 12:00 Resp 18 02/22/19 12:00 BP 155/86 H 02/22/19 12:00 Pulse Ox 95 02/22/19 12:00 Orthostatic Blood Pressure [ 167/97 Standing] Orthostatic Blood Pressure [ 165/89 Sitting] Orthostatic Blood Pressure [ 143/85 Supine] Med Orders - Current: Current Medications Discontinued Medications Acetaminophen (Tylenol) 650 mg PO Q4H PRN PRN Reason: Pain (Mild 1-3)/fever Albuterol/Ipratropium (Duoneb 3.0-0.5 Mg/3 Ml) 3 ml NEB Q4HRRT PRN PRN Reason: Shortness Of Breath/wheezing Aspirin (Aspirin) 324 mg PO ONETIME ONE Stop: 02/21/19 08:51 Last Admin: 02/21/19 08:59 Dose: 324 mg Aspirin (Aspirin) 81 mg PO DAILY [facility] Last Admin: 02/22/19 09:22 Dose: 81 mg Atorvastatin Calcium (Lipitor) 80 mg PO BEDTIME [facility] Last Admin: 02/21/19 21:04 Dose: 80 mg Sodium Chloride (Normal Saline) 1,000 mls @ 125 mls/hr IV ASDIRECTED [facility] Last Admin: 02/21/19 12:59 Dose: 125 mls/hr Pantoprazole Sodium 40 mg/ (Sodium Chloride) 10 mls @ 300 mls/hr IV DAILY [facility] Last Admin: 02/22/19 09:25 Dose: 300 mls/hr Dextrose/Sodium Chloride (Dextrose 5%-Normal Saline) 1,000 mls @ 100 mls/hr IV ASDIRECTED [facility] Last Admin: 02/21/19 16:27 Dose: 100 mls/hr Sodium Chloride (Normal Saline) 1,000 mls @ 100 mls/hr IV ASDIRECTED [facility] Last Admin: 02/22/19 09:30 Dose: 100 mls/hr Influenza Virus Vaccine (Fluzone High-Dose 2019-20 Syringe) 180 mcg IM .ONCE ONE Stop: 02/22/19 09:01 Iopamidol (Isovue Multipack-370 (76%)) 90 ml IVPUSH ONETIME STA Stop: 02/21/19 10:56 Last Admin: 02/21/19 10:55 Dose: 90 ml Meclizine HCl (Antivert) 25 mg PO ONETIME ONE Stop: 02/21/19 08:52 Last Admin: 02/21/19 08:59 Dose: 25 mg Ondansetron HCl (Zofran) 4 mg IVPUSH ONETIME ONE Stop: 02/21/19 08:52 Last Admin: 02/21/19 08:59 Dose: 4 mg Ondansetron HCl (Zofran) Confirm Administered Dose 4 mg .ROUTE .STK-MED ONE Stop: 02/21/19 08:50 Last Admin: 02/21/19 08:59 Dose: Not Given Ondansetron HCl (Zofran Odt) 4 mg PO Q4H PRN PRN Reason: nausea, able to take PO Ondansetron HCl (Zofran) 4 mg IVPUSH Q4H PRN PRN Reason: Nausea/Vomiting Sodium Chloride (Saline Flush) 10 ml FLUSH ASDIRECTED PRN PRN Reason: Keep Vein Open Last Admin: 02/21/19 08:59 Dose: 10 ml Sodium Chloride (Saline Flush) 2.5 ml FLUSH ASDIRECTED PRN PRN Reason: Keep Vein Open Last Admin: 02/21/19 08:59 Dose: 2.5 ml
== END 2019-02-22 12:37 | disposition home or self-care (01) ==
LOC: MW.ED 08:37 → MW.MS 10:26
PROVIDERS: ADMIT Student in an Organized Health Care Education/Training Program; ATTEND Student in an Organized Health Care Education/Training Program
DX: R42 Dizziness and giddiness (principal); R11.2 Nausea with vomiting, unspecified; I25.10 Atherosclerotic heart disease of native coronary artery without angina pectoris; R91.1 Solitary pulmonary nodule; K76.9 Liver disease, unspecified; K86.9 Disease of pancreas, unspecified; E78.00 Pure hypercholesterolemia, unspecified; I10 Essential (primary) hypertension; R74.8 Abnormal levels of other serum enzymes; Z95.1 Presence of aortocoronary bypass graft; Z95.0 Presence of cardiac pacemaker; Z86.79 Personal history of other diseases of the circulatory system
CPT/HCPCS: 36415; 70450; 71045; 74177; 80048; 80053; 81003; 82150; 82962; 83690; 83735; 83880; 84100; 84484; 85025; 85610; 93005; 96361; 96374; 96375; 96376; 99285; A9270; C9113; G0378; J2405; J7030; J7042; J7050; Q9967; 90471; 99284

== ENCOUNTER 2021-06-12 10:04 | Day surgery (SDC) | payer MEDICARE, OTHER ==
[~2021-06-12 10:04] MED LIST: Lactated Ringers 1,000 ML IV SCH; Lidocaine 1% 5 ML VIAL ONE; Propofol 200 MG/20 ML SDV ONE; Sodium Chloride 0.9% 10 ML Syringe FLUSH PRN; Sodium Chloride 0.9% 2.5 ML Syringe FLUSH PRN; Sodium Chloride 0.9% 20 ML SDV IV PRN; fentaNYL 100 MCG/2 ML SDV ONE
[2021-06-12 12:33] VITALS: PULSE 75
[2021-06-12 12:54] VITALS: BP 120/73
== END 2021-06-12 13:10 | disposition home or self-care (01) ==
LOC: MW.SDS 10:04
PROVIDERS: ATTEND Surgery
DX: Z12.11 Encounter for screening for malignant neoplasm of colon (principal); D12.8 Benign neoplasm of rectum; D12.0 Benign neoplasm of cecum; K57.30 Diverticulosis of large intestine without perforation or abscess without bleeding; K63.89 Other specified diseases of intestine; I25.2 Old myocardial infarction; I10 Essential (primary) hypertension; I25.10 Atherosclerotic heart disease of native coronary artery without angina pectoris; E66.9 Obesity, unspecified; Z79.899 Other long term (current) drug therapy; Z87.891 Personal history of nicotine dependence; Z68.30 Body mass index [BMI] 30.0-30.9, adult
CPT/HCPCS: 45380; J2704; J3010; J7120; 00812; 99100

== ENCOUNTER 2021-11-26 16:22 | Emergency (ER) | payer MEDICARE, OTHER ==
[2021-11-26 17:50] LABS: BLOOD UREA NITROGEN,BUN 24 mg/dL (7.0-18.0); CARBON DIOXIDE,CO2 26.4 mmol/L (21.0-32.0); CHLORIDE,CL 105 mmol/L (98-107); GLUCOSE RANDOM 103 mg/dL (74-106); POTASSIUM,K 3.5 mmol/L (3.5-5.1); SODIUM,NA 142 mmol/L (136-148)
[2021-11-26 17:53] LABS: ESTIMATED GFR 79 mL/min (>60)
[2021-11-26] MEDS ORDERED: Sodium Chloride 0.9% 1,000 ML IV ONE (18:14)
[2021-11-26 19:34] VITALS: BP 153/83; PULSE 72
== END 2021-11-26 19:08 | disposition home or self-care (01) ==
LOC: MW.ED 16:22
DX: R42 Dizziness and giddiness (principal); I10 Essential (primary) hypertension; I25.2 Old myocardial infarction; E66.9 Obesity, unspecified; Z68.30 Body mass index [BMI] 30.0-30.9, adult; Z79.82 Long term (current) use of aspirin; Z79.899 Other long term (current) drug therapy; Z95.1 Presence of aortocoronary bypass graft; Z95.0 Presence of cardiac pacemaker
CPT/HCPCS: 36415; 80053; 81003; 84484; 85025; 93005; 96360; 99284; J7030; 93010; 99283